=== PATIENT | male | born 1950 | race Caucasian/White ===

== ENCOUNTER 2019-07-19 01:30 | Inpatient (IN) ==
[2019-07-19] MEDS ORDERED: Potassium Chloride Elixir 20 MEQ/15 ML UDC PO ONE ×2 (02:26→05:53)
[2019-07-19 02:51] LABS: VBG HCO3 29 mEq/L (21-27); VBG PCO2 49 mmHg (41-51); VBG PH 7.37 pH Units (7.32-7.42); VBG PO2 61 mmHg (25-50)
[2019-07-19] MEDS: *HR* Labetalol 20 MG/4 ML SYRINGE IVP PRN ×5 (03:12→10:28)
[2019-07-19 03:54] LABS: Retculocyte # 0.04 M/mcL (0.05-0.10); Reticulocyte % 1.1 % (1.6-2.8)
[2019-07-19 03:56] LABS: Bilirubin,Urine Negative (Negative); Blood,Urine Small (Negative); Clarity,Urine Clear (Clear); Color,Urine Yellow (Yellow); Glucose,Urine (UA) Normal (Normal); Ketones,Urine Negative (Negative); Leukocyte Esterase,Urine Negative (Negative); Nitrite,Urine Negative (Negative); Protein,Urine >=300 mg/dL (Neg-Trace); Specific Gravity,Urine 1.021 (1.010-1.025); Urobilinogen,Urine Normal (Normal)
[2019-07-19 03:58] LABS: Bacteria,Urine None Seen per hpf (None-Few); Hyaline Casts,Urine None Seen per lpf (None-Few); Squamous Epithelial Cell,Urine Many per lpf (None-Few)
[2019-07-19] MEDS ORDERED: Naloxone 0.4 MG/ML INJ IVP PRN (04:05)
[2019-07-19 04:34] LABS: Basophils # 0.1 K/mcL (0.0-0.2); Basophils % 0.5 %; Eosinophils # 0.7 K/mcL (0.0-0.6); Eosinophils % 7.1 %; Hematocrit 32.4 % (37.5-50.1); Hemoglobin 10.9 g/dL (12.9-16.9); Immature Granulocytes % 0.3 % (0-4); Lymphocytes # 1.3 K/mcL (0.6-4.6); Lymphocytes % 13.5 %; Mean Corpuscular HGB Conc 33.6 g/dL (31.6-35.5); Mean Corpuscular Hemoglobin 29.5 pg (28.0-33.3); Mean Corpuscular Volume 87.8 fL (83.0-100.0); Mean Platelet Volume 10.4 fL (9.4-12.4); Monocytes # 0.6 K/mcL (0.0-1.3); Monocytes % 6.5 %; Neutrophils # 6.9 K/mcL (1.6-8.9); Platelet Count 257 K/mcL (140-400); Red Blood Count 3.69 M/mcL (4.19-5.50); Red Cell Distribution Width 12.6 % (11.5-14.5); Segmented Neutrophils % 72.1 %; White Blood Count 9.6 K/mcL (4.3-11.1)
[2019-07-19 04:38] LABS: INR 1.2; Prothrombin Time 13.2 Seconds (9.4-12.1)
[2019-07-19 04:53] LABS: Albumin 3.2 g/dL (3.5-5.7); Albumin/Globulin Ratio 0.9 (1.1-2.2); Bilirubin,Total 0.4 mg/dL (0.3-1.0); Calcium 8.1 mg/dL (8.6-10.3); Globulin 3.7 g/dL (2.4-3.5); Magnesium 1.9 mg/dL (1.6-2.6); Phosphorous 3.1 mg/dL (2.7-4.5); Total Protein 6.9 g/dL (6.4-8.9)
[2019-07-19 05:34] LABS: Protein/Creatinine Ratio,Urine 4.08 mg/mg (0.00-0.20); Sodium, Urine 70.6 mEq/L
[2019-07-19] MEDS ORDERED: Ipratropium/Albuterol Neb 3 ML IH PRN (08:05)
[2019-07-19] MEDS ORDERED: *HR* Labetalol 20 MG/4 ML SYRINGE IVP PRN (08:06)
[2019-07-19] MEDS: Aspirin Enteric Coated 81 MG Tablet PO SCH (09:00)
[2019-07-19] MEDS: Furosemide 40 MG TABLET PO SCH (09:00)
[2019-07-19] MEDS: amLODIPine 5 MG TABLET PO SCH (09:00)
[2019-07-19] MEDS ORDERED: *HR* Labetalol 20 MG/4 ML SYRINGE IVP ONE (15:53)
[2019-07-19] MEDS ORDERED: *HR* Dextrose 50 % in Water (Syg) 50 ML SYRINGE IVP PRN (19:28)
[2019-07-19] MEDS ORDERED: D5% in Water 1,000 ML IVC PRN (19:28)
[2019-07-19] MEDS ORDERED: Dextrose Gel 15 GM/37.5 ML TUBE PO PRN ×2 (19:28)
[2019-07-19] MEDS ORDERED: Insulin LISPRO 300 UNITS/3 ML VIAL SQ SCH (21:00)
[2019-07-20] MEDS: *HR* Labetalol 20 MG/4 ML SYRINGE IVP PRN ×3 (00:03→22:38)
[2019-07-20 07:06] LABS: Hepatitis B Surface Antigen Nonreactive (Nonreactive)
[2019-07-20 07:34] LABS: Hepatitis C Virus Antibody Nonreactive (Nonreactive)
[2019-07-20 07:35] LABS: Hepatitis B Core IgM Nonreactive (Nonreactive)
[2019-07-20 07:37] LABS: Hepatitis A Antibody IgM Nonreactive (Nonreactive)
[2019-07-20] MEDS: Insulin LISPRO 300 UNITS/3 ML VIAL SQ SCH ×2 (07:38→11:34)
[2019-07-20] MEDS: amLODIPine 5 MG TABLET PO SCH (07:46)
[2019-07-20] MEDS: Aspirin Enteric Coated 81 MG Tablet PO SCH (07:46)
[2019-07-20] MEDS: Furosemide 40 MG TABLET PO SCH (07:46)
[2019-07-20 08:21] LABS: Calcium 8.3 mg/dL (8.6-10.3); Potassium 2.8 mEq/L (3.5-5.1)
[2019-07-20 08:52] LABS: Estimated Average Glucose 114 mg/dl
[2019-07-20] MEDS ORDERED: 0.9 % Sodium Chloride 250 ML ONE (14:10)
[2019-07-20 14:20] LABS: Total Volume 24 Hour,Urine 3.12 Liters (0.80-1.80)
[2019-07-20 17:22] LABS: Kappa Qnt Free Light Chains 143.98 mg/L (3.30-19.40); Lambda Qnt Free Light Chains 104.19 mg/L (5.71-26.30)
[2019-07-20] MEDS ORDERED: *HR* Labetalol 20 MG/4 ML SYRINGE IVP ONE (17:36)
[2019-07-20] MEDS ORDERED: *HR* Heparin 5,000 UNIT/ML VIAL SQ SCH (18:00)
[2019-07-21 02:55] LABS: Calcium 7.9 mg/dL (8.6-10.3); Magnesium 1.9 mg/dL (1.6-2.6); Phosphorous 2.7 mg/dL (2.7-4.5); Potassium 2.9 mEq/L (3.5-5.1)
[2019-07-21] MEDS ORDERED: Potassium Chloride 40 MEQ, Lidocaine 1% 2 ML in 0.9 % Sodium Chloride 500 ML IVPB ONE (05:00)
[2019-07-21] MEDS ORDERED: Regadenoson 0.4 MG/5 ML SYRINGE IVP ONE ×2 (06:24→10:26)
[2019-07-21] MEDS ORDERED: 0.9 % Sodium Chloride 1,000 ML IVC SCH (07:45)
[2019-07-21] MEDS: Potassium Chloride Elixir 20 MEQ/15 ML UDC PO SCH ×2 (08:29→13:07)
[2019-07-21] MEDS: Aspirin Enteric Coated 81 MG Tablet PO SCH (08:29)
[2019-07-21] MEDS: Furosemide 40 MG TABLET PO SCH (08:30)
[2019-07-21] MEDS: amLODIPine 5 MG TABLET PO SCH (08:30)
[2019-07-21 13:03] LABS: Calcium 8.4 mg/dL (8.6-10.3); Potassium 3.5 mEq/L (3.5-5.1)
[2019-07-21] MEDS ORDERED: cloNIDine HCL 0.1 MG TABLET PO SCH (13:18)
[2019-07-22 01:21] LABS: Basophils % 0.3 %; Eosinophils % 10.6 %; Hematocrit 31.4 % (37.5-50.1); Immature Granulocytes % 0.3 % (0-4); Lymphocytes # 1.4 K/mcL (0.6-4.6); Lymphocytes % 14.7 %; Mean Corpuscular HGB Conc 31.8 g/dL (31.6-35.5); Mean Corpuscular Hemoglobin 28.4 pg (28.0-33.3); Mean Corpuscular Volume 89.2 fL (83.0-100.0); Mean Platelet Volume 10.6 fL (9.4-12.4); Monocytes # 0.6 K/mcL (0.0-1.3); Monocytes % 6.8 %; Neutrophils # 6.2 K/mcL (1.6-8.9); Platelet Count 263 K/mcL (140-400); Red Blood Count 3.52 M/mcL (4.19-5.50); Red Cell Distribution Width 12.5 % (11.5-14.5); Segmented Neutrophils % 67.3 %; White Blood Count 9.2 K/mcL (4.3-11.1)
[2019-07-22 01:39] LABS: Calcium 7.9 mg/dL (8.6-10.3); Potassium 3.5 mEq/L (3.5-5.1)
[2019-07-22 05:07] LABS: Alpha 2 Globulin (PEP) 1.02 g/dL (0.48-1.05); Beta Globulin (PEP) 1.21 g/dL (0.48-1.10)
[2019-07-22] MEDS ORDERED: cloNIDine HCL 0.1 MG TABLET PO SCH (09:00)
[2019-07-22] MEDS: Aspirin Enteric Coated 81 MG Tablet PO SCH (09:01)
[2019-07-22] MEDS: amLODIPine 5 MG TABLET PO SCH (09:01)
[2019-07-22] MEDS: cloNIDine HCL 0.1 MG TABLET PO SCH (19:57)
[2019-07-23 05:24] LABS: Basophils % 0.3 %; Eosinophils % 10.6 %; Hematocrit 32.3 % (37.5-50.1); Hemoglobin 10.3 g/dL (12.9-16.9); Immature Granulocytes % 0.3 % (0-4); Lymphocytes # 1.4 K/mcL (0.6-4.6); Lymphocytes % 15.1 %; Mean Corpuscular HGB Conc 31.9 g/dL (31.6-35.5); Mean Corpuscular Hemoglobin 28.4 pg (28.0-33.3); Mean Platelet Volume 10.4 fL (9.4-12.4); Monocytes # 0.7 K/mcL (0.0-1.3); Monocytes % 7.7 %; Neutrophils # 6.1 K/mcL (1.6-8.9); Platelet Count 275 K/mcL (140-400); Red Blood Count 3.63 M/mcL (4.19-5.50); Red Cell Distribution Width 12.5 % (11.5-14.5); White Blood Count 9.2 K/mcL (4.3-11.1)
[2019-07-23 05:46] LABS: Calcium 8.1 mg/dL (8.6-10.3); Potassium 3.7 mEq/L (3.5-5.1)
[2019-07-23] MEDS: Aspirin Enteric Coated 81 MG Tablet PO SCH (07:50)
[2019-07-23] MEDS: amLODIPine 5 MG TABLET PO SCH (07:50)
[2019-07-23] MEDS: cloNIDine HCL 0.1 MG TABLET PO SCH (07:50)
[2019-07-23 09:40] VITALS: BP 162/99
[2019-07-23 14:53] LABS: IFE Reflexed NOT DONE
== END 2019-07-23 10:06 | DRG 190 ==
LOC: 2NNU → SUATTDRO 01:30
PROVIDERS: ADMIT Internal Medicine; ATTEND Internal Medicine

== ENCOUNTER 2020-09-08 05:41 | Inpatient (IN) ==
[2020-09-08] MEDS ORDERED: Naloxone 0.4 MG/ML INJ IVP PRN (07:56)
[2020-09-08] MEDS ORDERED: Ondansetron 4 MG/2 ML VIAL IVP PRN (07:56)
[2020-09-08] MEDS ORDERED: Perflutren Lipid Microsphere 1.3 ML in 0.9 % Sodium Chloride 8.7 ML IVP PRN (08:47)
[2020-09-08] MEDS: Levalbuterol Neb 0.63 MG/3 ML IH SCH ×3 (10:13→20:49)
[2020-09-08] MEDS: hydrALAZINE 10 MG TABLET PO SCH ×2 (11:01→17:31)
[2020-09-08] MEDS: amLODIPine 5 MG TABLET PO SCH (11:01)
[2020-09-08] MEDS: Aspirin Enteric Coated 81 MG Tablet PO SCH (16:06)
[2020-09-08] MEDS: *HR* Heparin 5,000 UNIT/ML VIAL SQ SCH (17:31)
[2020-09-08] MEDS: Furosemide 40 MG/4 ML VIAL IVP SCH (20:48)
[2020-09-09] MEDS: hydrALAZINE 10 MG TABLET PO SCH ×2 (00:32→06:20)
[2020-09-09 01:50] LABS: VBG HCO3 30 mEq/L (21-27); VBG PCO2 51 mmHg (41-51); VBG PH 7.37 pH Units (7.32-7.42); VBG PO2 56 mmHg (25-50)
[2020-09-09 01:54] LABS: Basophils % 0.3 %; Eosinophils % 9.2 %; Hemoglobin 10.6 g/dL (12.9-16.9); Immature Granulocytes % 0.4 % (0-4); Lymphocytes # 1.1 K/mcL (0.6-4.6); Mean Corpuscular HGB Conc 32.1 g/dL (31.6-35.5); Mean Corpuscular Hemoglobin 28.6 pg (28.0-33.3); Mean Corpuscular Volume 89.2 fL (83.0-100.0); Mean Platelet Volume 10.4 fL (9.4-12.4); Monocytes # 0.7 K/mcL (0.0-1.3); Monocytes % 6.8 %; Neutrophils # 7.7 K/mcL (1.6-8.9); Platelet Count 232 K/mcL (140-400); Red Cell Distribution Width 13.4 % (11.5-14.5); Segmented Neutrophils % 73.3 %; White Blood Count 10.5 K/mcL (4.3-11.1)
[2020-09-09 02:12] LABS: Calcium 8.2 mg/dL (8.6-10.3); Potassium 3.7 mEq/L (3.5-5.1)
[2020-09-09] MEDS: Levalbuterol Neb 0.63 MG/3 ML IH SCH ×4 (03:52→21:14)
[2020-09-09] MEDS: *HR* Heparin 5,000 UNIT/ML VIAL SQ SCH ×2 (06:20→18:10)
[2020-09-09] MEDS: amLODIPine 5 MG TABLET PO SCH (08:13)
[2020-09-09] MEDS: Furosemide 40 MG/4 ML VIAL IVP SCH ×2 (08:14→22:49)
[2020-09-09] MEDS: Aspirin Enteric Coated 81 MG Tablet PO SCH (08:14)
[2020-09-09] MEDS ORDERED: hydrALAZINE 25 MG TABLET PO ONE (08:42)
[2020-09-09] MEDS ORDERED: NIFEdipine XL (24 HR) 60 MG TAB.ER.24 PO SCH (09:00)
[2020-09-09] MEDS: Finasteride 5 MG TABLET PO SCH (09:47)
[2020-09-09 12:08] LABS: Estimated Average Glucose 126 mg/dl
[2020-09-09 12:24] LABS: Chol/HDL Ratio 4.2 (0-4.9); Phosphorous 3.3 mg/dL (2.7-4.5)
[2020-09-09 12:37] LABS: Thyroid Stimulating Hormone 2.026 mcIU/mL (0.340-5.600)
[2020-09-09] MEDS: hydrALAZINE 25 MG TABLET PO SCH (15:57)
[2020-09-09 19:31] LABS: Folate 7.6 ng/mL (3.0-16.0)
[2020-09-09] MEDS: Albumin 25% 25gram/100mL 25 GM/100 ML IV.SOLN IVPB SCH (21:15)
[2020-09-09] MEDS: QUEtiapine Fumarate 25 MG TABLET PO SCH (21:16)
[2020-09-09 23:07] LABS: Bilirubin,Urine Negative (Negative); Blood,Urine Small (Negative); Clarity,Urine Clear (Clear); Color,Urine Light-Yellow (Yellow); Glucose,Urine (UA) 30 mg/dL (Normal); Ketones,Urine Negative (Negative); Leukocyte Esterase,Urine Negative (Negative); Mucus,Urine Few per lpf (None-Few); Nitrite,Urine Negative (Negative); PH,Urine 6.5 pH Units (5.0-8.0); Protein,Urine >=300 mg/dL (Neg-Trace); RBC,Urine 30-50 per hpf (0-3); Specific Gravity,Urine 1.017 (1.010-1.025); Squamous Epithelial Cell,Urine Few per hpf (None-Few); Urobilinogen,Urine Normal (Normal); WBC,Urine 0-3 per hpf (0-3)
[2020-09-10] MEDS: hydrALAZINE 25 MG TABLET PO SCH ×3 (00:49→16:33)
[2020-09-10 01:04] LABS: Basophils % 0.4 %; Eosinophils # 0.8 K/mcL (0.0-0.6); Eosinophils % 10.5 %; Hematocrit 32.1 % (37.5-50.1); Immature Granulocytes % 0.3 % (0-4); Lymphocytes # 1.3 K/mcL (0.6-4.6); Lymphocytes % 17.3 %; Mean Corpuscular HGB Conc 31.2 g/dL (31.6-35.5); Mean Corpuscular Hemoglobin 27.9 pg (28.0-33.3); Mean Corpuscular Volume 89.7 fL (83.0-100.0); Mean Platelet Volume 10.2 fL (9.4-12.4); Monocytes # 0.6 K/mcL (0.0-1.3); Neutrophils # 4.8 K/mcL (1.6-8.9); Platelet Count 211 K/mcL (140-400); Red Blood Count 3.58 M/mcL (4.19-5.50); Red Cell Distribution Width 13.4 % (11.5-14.5); Segmented Neutrophils % 63.5 %; White Blood Count 7.5 K/mcL (4.3-11.1)
[2020-09-10 01:25] LABS: Albumin 3.1 g/dL (3.5-5.7); Albumin/Globulin Ratio 0.9 (1.1-2.2); Bilirubin,Total 0.2 mg/dL (0.3-1.0); Calcium 8.1 mg/dL (8.6-10.3); Globulin 3.4 g/dL (2.4-3.5); Phosphorous 4.1 mg/dL (2.7-4.5); Potassium 3.8 mEq/L (3.5-5.1); Total Protein 6.5 g/dL (6.4-8.9)
[2020-09-10 01:48] LABS: Folate 7.3 ng/mL (3.0-16.0)
[2020-09-10] MEDS: Levalbuterol Neb 0.63 MG/3 ML IH SCH ×2 (03:35→11:09)
[2020-09-10] MEDS: *HR* Heparin 5,000 UNIT/ML VIAL SQ SCH (06:26)
[2020-09-10] MEDS ORDERED: Iron Sucrose Complex 400 MG in 0.9 % Sodium Chloride 250 ML IVPB ONE (07:28)
[2020-09-10] MEDS: Furosemide 40 MG/4 ML VIAL IVP SCH (07:54)
[2020-09-10] MEDS: Aspirin Enteric Coated 81 MG Tablet PO SCH (07:54)
[2020-09-10] MEDS: Multivit/Ca/Min/Fe/FA 1 TAB TABLET PO SCH (07:54)
[2020-09-10] MEDS: Finasteride 5 MG TABLET PO SCH (07:54)
[2020-09-10] MEDS: Albumin 25% 25gram/100mL 25 GM/100 ML IV.SOLN IVPB SCH ×2 (07:55→19:27)
[2020-09-10] MEDS ORDERED: DilTIAZem CD (24hr) 180 MG CAP.ER.24H PO SCH (09:00)
[2020-09-10] MEDS ORDERED: Ipratropium/Albuterol Neb 3 ML IH PRN (10:09)
[2020-09-10] MEDS: predniSONE 20 MG TABLET PO SCH (10:25)
[2020-09-10] MEDS: Azithromycin 250 MG TABLET PO SCH (10:25)
[2020-09-10] MEDS ORDERED: Ipratropium/Albuterol Neb 3 ML IH SCH (12:00)
[2020-09-10 12:37] LABS: Protein/Creatinine Ratio,Urine 1.7 mg/mg (0.00-0.20); Sodium, Urine 86.4 mEq/L
[2020-09-10] MEDS: Ipratropium/Albuterol Neb 3 ML IH SCH ×2 (16:03→22:28)
[2020-09-10] MEDS ORDERED: Furosemide 20 MG/2 ML VIAL IVP SCH (17:00)
[2020-09-10] MEDS: QUEtiapine Fumarate 25 MG TABLET PO SCH (19:26)
[2020-09-10] MEDS: Budesonide/Formoterol 160/4.5 1 PUFF INH IH SCH (22:28)
[2020-09-11] MEDS: *HR* Heparin 5,000 UNIT/ML VIAL SQ SCH ×4 (00:26→21:37)
[2020-09-11 01:32] LABS: Basophils % 0.1 %; Hematocrit 29.8 % (37.5-50.1); Hemoglobin 9.4 g/dL (12.9-16.9); Immature Granulocytes % 0.5 % (0-4); Lymphocytes # 0.6 K/mcL (0.6-4.6); Lymphocytes % 5.7 %; Mean Corpuscular HGB Conc 31.5 g/dL (31.6-35.5); Mean Corpuscular Hemoglobin 28.2 pg (28.0-33.3); Mean Corpuscular Volume 89.5 fL (83.0-100.0); Mean Platelet Volume 10.8 fL (9.4-12.4); Monocytes # 0.5 K/mcL (0.0-1.3); Platelet Count 218 K/mcL (140-400); Red Blood Count 3.33 M/mcL (4.19-5.50); Red Cell Distribution Width 13.2 % (11.5-14.5); Segmented Neutrophils % 88.7 %; White Blood Count 10.1 K/mcL (4.3-11.1)
[2020-09-11 01:52] LABS: Uric Acid 9.7 mg/dL (2.3-7.6)
[2020-09-11 01:53] LABS: Albumin 3.3 g/dL (3.5-5.7); Bilirubin,Total 0.2 mg/dL (0.3-1.0); Calcium 8.1 mg/dL (8.6-10.3); Globulin 3.2 g/dL (2.4-3.5); Phosphorous 1.4 mg/dL (2.7-4.5); Potassium 4.1 mEq/L (3.5-5.1); Total Protein 6.5 g/dL (6.4-8.9)
[2020-09-11 02:46] LABS: Hepatitis B Surface Antigen Nonreactive (Nonreactive)
[2020-09-11 03:15] LABS: Hepatitis B Core IgM Nonreactive (Nonreactive)
[2020-09-11 03:16] LABS: Hepatitis A Antibody IgM Nonreactive (Nonreactive); Hepatitis C Virus Antibody Nonreactive (Nonreactive)
[2020-09-11] MEDS: Ipratropium/Albuterol Neb 3 ML IH SCH ×4 (04:25→22:56)
[2020-09-11] MEDS: hydrALAZINE 25 MG TABLET PO SCH ×3 (05:11→21:37)
[2020-09-11] MEDS: Multivit/Ca/Min/Fe/FA 1 TAB TABLET PO SCH (09:12)
[2020-09-11] MEDS: Aspirin Enteric Coated 81 MG Tablet PO SCH (09:12)
[2020-09-11] MEDS: Azithromycin 250 MG TABLET PO SCH (09:13)
[2020-09-11] MEDS: predniSONE 20 MG TABLET PO SCH (09:13)
[2020-09-11] MEDS: Finasteride 5 MG TABLET PO SCH (09:13)
[2020-09-11] MEDS: DilTIAZem CD (24hr) 120 MG CAP.ER.24H PO SCH (09:13)
[2020-09-11] MEDS: Fluticasone Propionate Nasal 50 MCG/SPRAY BOTTLE NS SCH (09:14)
[2020-09-11 09:45] LABS: Vitamin D 25 Hydroxy 11 ng/mL (30-80)
[2020-09-11] MEDS: Budesonide/Formoterol 160/4.5 1 PUFF INH IH SCH ×2 (10:46→22:56)
[2020-09-11] MEDS: QUEtiapine Fumarate 25 MG TABLET PO SCH (19:56)
[2020-09-12 03:24] LABS: Basophils % 0.1 %; Hematocrit 32.3 % (37.5-50.1); Hemoglobin 10.4 g/dL (12.9-16.9); Immature Granulocytes % 1.1 % (0-4); Lymphocytes # 0.8 K/mcL (0.6-4.6); Lymphocytes % 5.8 %; Mean Corpuscular HGB Conc 32.2 g/dL (31.6-35.5); Mean Corpuscular Hemoglobin 28.7 pg (28.0-33.3); Mean Platelet Volume 10.7 fL (9.4-12.4); Monocytes # 0.5 K/mcL (0.0-1.3); Monocytes % 3.2 %; Neutrophils # 12.7 K/mcL (1.6-8.9); Platelet Count 230 K/mcL (140-400); Red Blood Count 3.63 M/mcL (4.19-5.50); Red Cell Distribution Width 13.3 % (11.5-14.5); Segmented Neutrophils % 89.8 %; White Blood Count 14.2 K/mcL (4.3-11.1)
[2020-09-12 03:43] LABS: Albumin 3.4 g/dL (3.5-5.7); Bilirubin,Total 0.2 mg/dL (0.3-1.0); Calcium 8.5 mg/dL (8.6-10.3); Globulin 3.3 g/dL (2.4-3.5); Magnesium 2.1 mg/dL (1.6-2.6); Phosphorous 2.5 mg/dL (2.7-4.5); Potassium 4.6 mEq/L (3.5-5.1); Total Protein 6.7 g/dL (6.4-8.9)
[2020-09-12] MEDS: Ipratropium/Albuterol Neb 3 ML IH SCH ×4 (04:11→22:41)
[2020-09-12] MEDS: *HR* Heparin 5,000 UNIT/ML VIAL SQ SCH ×3 (06:08→22:09)
[2020-09-12] MEDS: hydrALAZINE 25 MG TABLET PO SCH ×3 (06:08→22:08)
[2020-09-12] MEDS: Finasteride 5 MG TABLET PO SCH (07:42)
[2020-09-12] MEDS: Aspirin Enteric Coated 81 MG Tablet PO SCH (07:43)
[2020-09-12] MEDS: DilTIAZem CD (24hr) 120 MG CAP.ER.24H PO SCH (07:43)
[2020-09-12] MEDS: Multivit/Ca/Min/Fe/FA 1 TAB TABLET PO SCH (07:43)
[2020-09-12] MEDS: Fluticasone Propionate Nasal 50 MCG/SPRAY BOTTLE NS SCH (07:43)
[2020-09-12] MEDS: predniSONE 20 MG TABLET PO SCH (07:43)
[2020-09-12] MEDS: Azithromycin 250 MG TABLET PO SCH (07:56)
[2020-09-12] MEDS: Calcium Gluconate 1gm/50mL 1 GM/50 ML BAG IVPB SCH ×2 (07:58→09:36)
[2020-09-12] MEDS: Budesonide/Formoterol 160/4.5 1 PUFF INH IH SCH ×2 (11:31→22:41)
[2020-09-12] MEDS ORDERED: NIFEdipine XL (24 HR) 30 MG TAB.ER.24 PO ONE (15:04)
[2020-09-12] MEDS: NIFEdipine XL (24 HR) 30 MG TAB.ER.24 PO SCH (17:02)
[2020-09-12] MEDS: QUEtiapine Fumarate 25 MG TABLET PO SCH (22:08)
[2020-09-13] MEDS: Melatonin 3 MG TABLET PO PRN (01:24)
[2020-09-13 03:13] LABS: Hematocrit 30.9 % (37.5-50.1); Hemoglobin 9.8 g/dL (12.9-16.9); Mean Corpuscular HGB Conc 31.7 g/dL (31.6-35.5); Mean Corpuscular Hemoglobin 27.8 pg (28.0-33.3); Mean Corpuscular Volume 87.8 fL (83.0-100.0); Mean Platelet Volume 10.9 fL (9.4-12.4); Platelet Count 256 K/mcL (140-400); Red Blood Count 3.52 M/mcL (4.19-5.50); Red Cell Distribution Width 13.5 % (11.5-14.5); White Blood Count 17.5 K/mcL (4.3-11.1)
[2020-09-13 03:23] LABS: Calcium 8.5 mg/dL (8.6-10.3); Magnesium 1.9 mg/dL (1.6-2.6); Phosphorous 3.3 mg/dL (2.7-4.5)
[2020-09-13] MEDS: Ipratropium/Albuterol Neb 3 ML IH SCH ×4 (03:53→22:32)
[2020-09-13] MEDS: *HR* Heparin 5,000 UNIT/ML VIAL SQ SCH ×3 (09:55→21:02)
[2020-09-13] MEDS: Multivit/Ca/Min/Fe/FA 1 TAB TABLET PO SCH (09:56)
[2020-09-13] MEDS: predniSONE 20 MG TABLET PO SCH (09:56)
[2020-09-13] MEDS: NIFEdipine XL (24 HR) 30 MG TAB.ER.24 PO SCH (09:56)
[2020-09-13] MEDS: Azithromycin 250 MG TABLET PO SCH (09:56)
[2020-09-13] MEDS: Finasteride 5 MG TABLET PO SCH (09:57)
[2020-09-13] MEDS: Aspirin Enteric Coated 81 MG Tablet PO SCH (09:57)
[2020-09-13] MEDS: Fluticasone Propionate Nasal 50 MCG/SPRAY BOTTLE NS SCH (09:58)
[2020-09-13] MEDS: hydrALAZINE 25 MG TABLET PO SCH ×3 (09:59→21:02)
[2020-09-13] MEDS: Furosemide 20 MG TABLET PO SCH ×2 (10:04→16:37)
[2020-09-13] MEDS: Budesonide/Formoterol 160/4.5 1 PUFF INH IH SCH ×2 (11:01→22:32)
[2020-09-13] MEDS ORDERED: Mag Hydrox/Al Hydrox/Simeth 30 ML UDC PO PRN (15:34)
[2020-09-13] MEDS: QUEtiapine Fumarate 25 MG TABLET PO SCH (21:02)
[2020-09-14] MEDS: Ipratropium/Albuterol Neb 3 ML IH SCH ×4 (03:25→21:49)
[2020-09-14 05:53] LABS: Hematocrit 31.2 % (37.5-50.1); Hemoglobin 10.1 g/dL (12.9-16.9); Mean Corpuscular HGB Conc 32.4 g/dL (31.6-35.5); Mean Corpuscular Hemoglobin 28.5 pg (28.0-33.3); Mean Corpuscular Volume 87.9 fL (83.0-100.0); Platelet Count 242 K/mcL (140-400); Red Blood Count 3.55 M/mcL (4.19-5.50); Red Cell Distribution Width 13.5 % (11.5-14.5); White Blood Count 14.7 K/mcL (4.3-11.1)
[2020-09-14] MEDS: *HR* Heparin 5,000 UNIT/ML VIAL SQ SCH ×3 (06:02→21:15)
[2020-09-14] MEDS: hydrALAZINE 25 MG TABLET PO SCH ×3 (06:02→21:17)
[2020-09-14 06:14] LABS: Calcium 8.5 mg/dL (8.6-10.3); Magnesium 2.2 mg/dL (1.6-2.6); Phosphorous 3.7 mg/dL (2.7-4.5); Potassium 4.3 mEq/L (3.5-5.1)
[2020-09-14] MEDS: Finasteride 5 MG TABLET PO SCH (07:35)
[2020-09-14] MEDS: NIFEdipine XL (24 HR) 30 MG TAB.ER.24 PO SCH (07:35)
[2020-09-14] MEDS: Aspirin Enteric Coated 81 MG Tablet PO SCH (07:35)
[2020-09-14] MEDS: predniSONE 20 MG TABLET PO SCH (07:36)
[2020-09-14] MEDS: Multivit/Ca/Min/Fe/FA 1 TAB TABLET PO SCH (07:36)
[2020-09-14] MEDS: Fluticasone Propionate Nasal 50 MCG/SPRAY BOTTLE NS SCH (07:37)
[2020-09-14] MEDS: Azithromycin 250 MG TABLET PO SCH (10:43)
[2020-09-14] MEDS: Budesonide/Formoterol 160/4.5 1 PUFF INH IH SCH ×2 (10:53→21:49)
[2020-09-14] MEDS: Melatonin 3 MG TABLET PO PRN (21:14)
[2020-09-14] MEDS: QUEtiapine Fumarate 25 MG TABLET PO SCH (21:14)
[2020-09-15] MEDS: Ipratropium/Albuterol Neb 3 ML IH SCH ×4 (04:43→21:55)
[2020-09-15] MEDS: *HR* Heparin 5,000 UNIT/ML VIAL SQ SCH ×3 (06:30→21:48)
[2020-09-15] MEDS: hydrALAZINE 25 MG TABLET PO SCH ×3 (06:32→23:39)
[2020-09-15 07:19] LABS: Hematocrit 31.2 % (37.5-50.1); Mean Corpuscular HGB Conc 32.1 g/dL (31.6-35.5); Mean Corpuscular Hemoglobin 27.9 pg (28.0-33.3); Mean Corpuscular Volume 86.9 fL (83.0-100.0); Mean Platelet Volume 10.6 fL (9.4-12.4); Platelet Count 233 K/mcL (140-400); Red Blood Count 3.59 M/mcL (4.19-5.50); Red Cell Distribution Width 13.7 % (11.5-14.5); White Blood Count 15.7 K/mcL (4.3-11.1)
[2020-09-15 08:06] LABS: Calcium 8.8 mg/dL (8.6-10.3); Magnesium 2.5 mg/dL (1.6-2.6); Phosphorous 4.3 mg/dL (2.7-4.5)
[2020-09-15] MEDS: Multivit/Ca/Min/Fe/FA 1 TAB TABLET PO SCH (09:49)
[2020-09-15] MEDS: NIFEdipine XL (24 HR) 30 MG TAB.ER.24 PO SCH (09:49)
[2020-09-15] MEDS: Aspirin Enteric Coated 81 MG Tablet PO SCH (09:49)
[2020-09-15] MEDS: Finasteride 5 MG TABLET PO SCH (09:49)
[2020-09-15] MEDS: Fluticasone Propionate Nasal 50 MCG/SPRAY BOTTLE NS SCH (09:50)
[2020-09-15] MEDS: Budesonide/Formoterol 160/4.5 1 PUFF INH IH SCH ×2 (10:57→21:55)
[2020-09-15] MEDS: polyethylene glycoL 3350 17 GM POWD.PACK PO SCH ×2 (18:09→23:40)
[2020-09-15] MEDS: QUEtiapine Fumarate 25 MG TABLET PO SCH (21:22)
[2020-09-16 01:57] LABS: Basophils # 0.1 K/mcL (0.0-0.2); Basophils % 0.4 %; Eosinophils # 0.2 K/mcL (0.0-0.6); Eosinophils % 1.9 %; Immature Granulocytes % 2.4 % (0-4); Lymphocytes # 2.1 K/mcL (0.6-4.6); Lymphocytes % 16.4 %; Mean Corpuscular HGB Conc 32.3 g/dL (31.6-35.5); Mean Corpuscular Hemoglobin 27.9 pg (28.0-33.3); Mean Corpuscular Volume 86.6 fL (83.0-100.0); Mean Platelet Volume 10.6 fL (9.4-12.4); Monocytes # 1.1 K/mcL (0.0-1.3); Neutrophils # 8.9 K/mcL (1.6-8.9); Platelet Count 236 K/mcL (140-400); Red Blood Count 3.58 M/mcL (4.19-5.50); Red Cell Distribution Width 13.8 % (11.5-14.5); Segmented Neutrophils % 69.9 %; White Blood Count 12.7 K/mcL (4.3-11.1)
[2020-09-16 02:15] LABS: Albumin 3.2 g/dL (3.5-5.7); Calcium 8.4 mg/dL (8.6-10.3); Potassium 4.3 mEq/L (3.5-5.1)
[2020-09-16] MEDS: Ipratropium/Albuterol Neb 3 ML IH SCH ×4 (04:15→22:14)
[2020-09-16] MEDS: hydrALAZINE 25 MG TABLET PO SCH ×3 (05:16→21:39)
[2020-09-16] MEDS: *HR* Heparin 5,000 UNIT/ML VIAL SQ SCH ×3 (05:17→21:39)
[2020-09-16] MEDS ORDERED: NIFEdipine XL (24 HR) 60 MG TAB.ER.24 PO SCH (09:00)
[2020-09-16] MEDS: Aspirin Enteric Coated 81 MG Tablet PO SCH (09:03)
[2020-09-16] MEDS: Multivit/Ca/Min/Fe/FA 1 TAB TABLET PO SCH (09:03)
[2020-09-16] MEDS: NIFEdipine XL (24 HR) 30 MG TAB.ER.24 PO SCH (09:03)
[2020-09-16] MEDS: Finasteride 5 MG TABLET PO SCH (09:03)
[2020-09-16] MEDS: Furosemide 20 MG TABLET PO SCH (09:03)
[2020-09-16] MEDS: Fluticasone Propionate Nasal 50 MCG/SPRAY BOTTLE NS SCH (09:04)
[2020-09-16] MEDS: polyethylene glycoL 3350 17 GM POWD.PACK PO SCH ×2 (09:05→21:39)
[2020-09-16] MEDS: Budesonide/Formoterol 160/4.5 1 PUFF INH IH SCH ×2 (10:24→22:13)
[2020-09-16] MEDS: QUEtiapine Fumarate 25 MG TABLET PO SCH (21:39)
[2020-09-17 02:02] LABS: Hematocrit 29.9 % (37.5-50.1); Hemoglobin 9.5 g/dL (12.9-16.9); Mean Corpuscular HGB Conc 31.8 g/dL (31.6-35.5); Mean Corpuscular Hemoglobin 27.6 pg (28.0-33.3); Mean Corpuscular Volume 86.9 fL (83.0-100.0); Mean Platelet Volume 10.9 fL (9.4-12.4); Platelet Count 244 K/mcL (140-400); Red Blood Count 3.44 M/mcL (4.19-5.50); Red Cell Distribution Width 14.3 % (11.5-14.5); White Blood Count 14.7 K/mcL (4.3-11.1)
[2020-09-17 02:15] LABS: Calcium 8.1 mg/dL (8.6-10.3); Potassium 4.2 mEq/L (3.5-5.1)
[2020-09-17] MEDS: Ipratropium/Albuterol Neb 3 ML IH SCH ×4 (03:21→21:53)
[2020-09-17] MEDS: *HR* Heparin 5,000 UNIT/ML VIAL SQ SCH ×3 (05:07→21:44)
[2020-09-17] MEDS: hydrALAZINE 25 MG TABLET PO SCH ×3 (05:07→21:43)
[2020-09-17] MEDS: Finasteride 5 MG TABLET PO SCH (07:29)
[2020-09-17] MEDS: Multivit/Ca/Min/Fe/FA 1 TAB TABLET PO SCH (07:29)
[2020-09-17] MEDS: Aspirin Enteric Coated 81 MG Tablet PO SCH (07:29)
[2020-09-17] MEDS: NIFEdipine XL (24 HR) 30 MG TAB.ER.24 PO SCH (07:29)
[2020-09-17] MEDS: Fluticasone Propionate Nasal 50 MCG/SPRAY BOTTLE NS SCH (07:29)
[2020-09-17] MEDS: Furosemide 20 MG TABLET PO SCH (07:29)
[2020-09-17] MEDS: polyethylene glycoL 3350 17 GM POWD.PACK PO SCH ×2 (07:29→21:43)
[2020-09-17] MEDS: Piperacillin/Tazobactam 3.375 GM in 0.9 % Sodium Chloride Mini Bag 100 ML IVPB SCH ×3 (10:16→23:45)
[2020-09-17] MEDS: Budesonide/Formoterol 160/4.5 1 PUFF INH IH SCH ×2 (11:20→21:52)
[2020-09-17 15:15] LABS: Adenovirus Not Detected (Not Detect); Bordetella Pertussis Not Detected (Not Detect); Chlamydophila pneumoniae Not Detected (Not Detect); Coronavirus 229E Not Detected (Not Detect); Coronavirus HKU1 Not Detected (Not Detect); Coronavirus NL63 Not Detected (Not Detect); Coronavirus OC43 Not Detected (Not Detect); Human Metapneumovirus Not Detected (Not Detect); Human Rhinovirus/Enterovirus Not Detected (Not Detect); Influenza A Subtype 2009 H1 Not Detected (Not Detect); Influenza B Not Detected (Not Detect); Mycoplasma pneumoniae Not Detected (Not Detect); Parainfluenza Virus 1 Not Detected (Not Detect); Parainfluenza Virus 2 Not Detected (Not Detect); Parainfluenza Virus 3 Not Detected (Not Detect); Parainfluenza Virus 4 Not Detected (Not Detect); Respiratory Syncytial Virus Not Detected (Not Detect); SARS-CoV-2 Not Detected (Not Detect)
[2020-09-17] MEDS: QUEtiapine Fumarate 25 MG TABLET PO SCH (21:43)
[2020-09-18] MEDS: Ipratropium/Albuterol Neb 3 ML IH SCH ×4 (03:47→21:44)
[2020-09-18 05:08] LABS: Basophils % 0.3 %; Eosinophils # 0.5 K/mcL (0.0-0.6); Eosinophils % 3.9 %; Hematocrit 30.6 % (37.5-50.1); Hemoglobin 9.7 g/dL (12.9-16.9); Immature Granulocytes % 1.6 % (0-4); Lymphocytes # 1.5 K/mcL (0.6-4.6); Lymphocytes % 11.8 %; Mean Corpuscular HGB Conc 31.7 g/dL (31.6-35.5); Mean Corpuscular Hemoglobin 28.2 pg (28.0-33.3); Mean Platelet Volume 10.9 fL (9.4-12.4); Monocytes # 1.2 K/mcL (0.0-1.3); Monocytes % 9.3 %; Neutrophils # 9.3 K/mcL (1.6-8.9); Platelet Count 217 K/mcL (140-400); Red Blood Count 3.44 M/mcL (4.19-5.50); Red Cell Distribution Width 14.5 % (11.5-14.5); Segmented Neutrophils % 73.1 %; White Blood Count 12.7 K/mcL (4.3-11.1)
[2020-09-18] MEDS: *HR* Heparin 5,000 UNIT/ML VIAL SQ SCH ×3 (05:08→20:48)
[2020-09-18] MEDS: hydrALAZINE 25 MG TABLET PO SCH ×3 (05:08→20:47)
[2020-09-18 05:26] LABS: Calcium 8.2 mg/dL (8.6-10.3); Potassium 4.6 mEq/L (3.5-5.1)
[2020-09-18] MEDS ORDERED: 0.9 % Sodium Chloride 1,000 ML IVC SCH (08:00)
[2020-09-18] MEDS: NIFEdipine XL (24 HR) 30 MG TAB.ER.24 PO SCH (08:15)
[2020-09-18] MEDS: Aspirin Enteric Coated 81 MG Tablet PO SCH (08:15)
[2020-09-18] MEDS: Multivit/Ca/Min/Fe/FA 1 TAB TABLET PO SCH (08:15)
[2020-09-18] MEDS: Finasteride 5 MG TABLET PO SCH (08:15)
[2020-09-18] MEDS: Fluticasone Propionate Nasal 50 MCG/SPRAY BOTTLE NS SCH (08:16)
[2020-09-18] MEDS: polyethylene glycoL 3350 17 GM POWD.PACK PO SCH ×2 (08:16→20:47)
[2020-09-18] MEDS: Budesonide/Formoterol 160/4.5 1 PUFF INH IH SCH ×2 (11:11→21:44)
[2020-09-18] MEDS: Piperacillin/Tazobactam 3.375 GM in 0.9 % Sodium Chloride Mini Bag 100 ML IVPB SCH (12:44)
[2020-09-18] MEDS: Ammonium Lactate 30 APPL/225 GM BOTTLE TP SCH ×2 (15:30→21:04)
[2020-09-18] MEDS: QUEtiapine Fumarate 25 MG TABLET PO SCH (20:47)
[2020-09-19] MEDS: Piperacillin/Tazobactam 3.375 GM in 0.9 % Sodium Chloride Mini Bag 100 ML IVPB SCH (00:24)
[2020-09-19 02:58] LABS: Basophils % 0.2 %; Eosinophils # 0.6 K/mcL (0.0-0.6); Eosinophils % 4.4 %; Hematocrit 31.5 % (37.5-50.1); Hemoglobin 10.1 g/dL (12.9-16.9); Immature Granulocytes % 1.3 % (0-4); Lymphocytes # 1.6 K/mcL (0.6-4.6); Lymphocytes % 11.1 %; Mean Corpuscular HGB Conc 32.1 g/dL (31.6-35.5); Mean Corpuscular Hemoglobin 28.9 pg (28.0-33.3); Monocytes # 1.2 K/mcL (0.0-1.3); Monocytes % 8.5 %; Neutrophils # 10.6 K/mcL (1.6-8.9); Platelet Count 230 K/mcL (140-400); Red Cell Distribution Width 14.7 % (11.5-14.5); Segmented Neutrophils % 74.5 %; White Blood Count 14.2 K/mcL (4.3-11.1)
[2020-09-19 03:18] LABS: Calcium 8.3 mg/dL (8.6-10.3); Potassium 4.9 mEq/L (3.5-5.1)
[2020-09-19] MEDS: Ipratropium/Albuterol Neb 3 ML IH SCH ×2 (03:52→09:59)
[2020-09-19] MEDS: *HR* Heparin 5,000 UNIT/ML VIAL SQ SCH (05:44)
[2020-09-19] MEDS: hydrALAZINE 25 MG TABLET PO SCH (05:44)
[2020-09-19] MEDS: Budesonide/Formoterol 160/4.5 1 PUFF INH IH SCH (09:59)
[2020-09-19] MEDS: NIFEdipine XL (24 HR) 30 MG TAB.ER.24 PO SCH (09:59)
[2020-09-19] MEDS: Multivit/Ca/Min/Fe/FA 1 TAB TABLET PO SCH (09:59)
[2020-09-19] MEDS: Aspirin Enteric Coated 81 MG Tablet PO SCH (09:59)
[2020-09-19] MEDS: Finasteride 5 MG TABLET PO SCH (09:59)
[2020-09-19] MEDS: polyethylene glycoL 3350 17 GM POWD.PACK PO SCH (10:02)
[2020-09-19] MEDS: Ammonium Lactate 30 APPL/225 GM BOTTLE TP SCH (10:05)
[2020-09-19] MEDS: Fluticasone Propionate Nasal 50 MCG/SPRAY BOTTLE NS SCH (10:06)
[2020-09-19 11:13] VITALS: BP 114/67
== END 2020-09-19 15:01 | DRG 194 ==
LOC: 2NENU → SUATTDRO 07:21 → 2NENU 09-18 13:47
PROVIDERS: ADMIT Family Medicine; ATTEND Internal Medicine